=== PATIENT | female | born 1985 | race Two or more races ===

== ENCOUNTER 2022-01-22 19:50 | Inpatient (IN) | payer OTHER ==
[~2022-01-22] VITALS: Ht 160 cm; Wt 68.9 kg
== END 2022-01-26 10:44 | disposition home or self-care (01) | DRG 833 ==
LOC: LDR 19:50 → OB/GYN 01-24 11:28
PROVIDERS: ADMIT Obstetrics & Gynecology; ATTEND Obstetrics & Gynecology
PROC: 4A1HXCZ Monitoring of Products of Conception, Cardiac Rate, External Approach (ICD-10-PCS; principal; 2022-01-22)
PROC: BY4FZZZ Ultrasonography of Third Trimester, Single Fetus (ICD-10-PCS; 2022-01-22)
PROC: BU4CZZZ Ultrasonography of Uterus and Ovaries (ICD-10-PCS; 2022-01-22)
DX: O47.03 False labor before 37 completed weeks of gestation, third trimester (principal); O26.893 Other specified pregnancy related conditions, third trimester; T14.90XA Injury, unspecified, initial encounter; W19.XXXA Unspecified fall, initial encounter; Y93.9 Activity, unspecified; Y92.9 Unspecified place or not applicable; Y99.9 Unspecified external cause status; Z3A.30 30 weeks gestation of pregnancy; Z20.822 Contact with and (suspected) exposure to COVID-19

== ENCOUNTER 2022-01-30 07:34 | Outpatient (CLI) | payer OTHER | END 2022-01-30 09:04 | disposition home or self-care (01) | LOC: NST 07:34 | PROVIDERS: ATTEND Obstetrics & Gynecology | DX: Z34.83 Encounter for supervision of other normal pregnancy, third trimester (principal) ==

== ENCOUNTER 2022-02-08 07:40 | Outpatient (CLI) | payer OTHER | END 2022-02-08 09:25 | disposition home or self-care (01) | LOC: NST 07:40 | PROVIDERS: ATTEND Obstetrics & Gynecology | DX: Z34.83 Encounter for supervision of other normal pregnancy, third trimester (principal) ==

== ENCOUNTER 2022-02-22 10:57 | Inpatient (IN) | payer OTHER ==
[~2022-02-22] VITALS: Ht 160 cm; Wt 1.8 kg
[2022-02-22] MEDS ORDERED: COMPLETE NATAL1 EACH PO (12:50)
== END 2022-02-25 17:36 | DRG 786 ==
LOC: LDR 10:57 → OB/GYN 18:29
PROVIDERS: ADMIT Obstetrics & Gynecology; ATTEND Obstetrics & Gynecology
PROC: 4A1HXCZ Monitoring of Products of Conception, Cardiac Rate, External Approach (ICD-10-PCS; 2022-02-22)
PROC: 10D00Z1 Extraction of Products of Conception, Low, Open Approach (ICD-10-PCS; principal; 2022-02-22 12:00)
DX: O32.1XX0 Maternal care for breech presentation, not applicable or unspecified (principal); O60.14X0 Preterm labor third trimester with preterm delivery third trimester, not applicable or unspecified; O41.03X0 Oligohydramnios, third trimester, not applicable or unspecified; Z3A.35 35 weeks gestation of pregnancy; Z37.0 Single live birth; Z20.822 Contact with and (suspected) exposure to COVID-19